=== PATIENT | male | born 1940 | race Caucasian/White ===

== ENCOUNTER 2017-08-11 00:28 | Inpatient (IN) | payer MEDICARE, OTHER ==
[2017-08-10 14:58] LABS: INR 0.94
[2017-08-11] VITALS (15 sets, daily range): BP systolic 110–150; BP diastolic 59–96
[~2017-08-11] VITALS: Ht 166.4 cm; Wt 57.6 kg
[~2017-08-11 00:28] MED LIST: ASPI81TA94 PO; BACI1TAB2 PO; CHOL10005 PO; LACT1CAP9 PO; LISI-362 PO; LOPE-84 PO; METF-410 PO; NAPR220C12 PO; PRAV20TA65 PO; UBID100C48 PO; VIT-7 PO; [UNRECOGNIZED DRUG - CODE] PO
[2017-08-11] MEDS ORDERED: MIDAZOLAM 2 MG/2 ML VIAL IVP PRN (06:15)
[2017-08-11] MEDS ORDERED: cloNIDine EPIDUR INJ 100MCG/ML 40 MCG, ROPIVACAINE 0.5% 20 ML VIAL 25 ML, EPINEPHrine H... INJ ONE (06:15)
[2017-08-11] MEDS ORDERED: LIDOCAINE/SOD BICARB 8.4% SYR ID ONE (06:15)
[2017-08-11] MEDS ORDERED: CLINDAMYCIN(*) 900 MG/NS 50 ML 50 ML IVPB ONE (06:15)
[2017-08-11] MEDS ORDERED: NORMOSOL R SOLN(*) 1000 ML BAG 1,000 ML IV PRN ×2 (06:15→09:45)
[2017-08-11] MEDS ORDERED: TRANEXAMIC AC 1000 MG/10ML SDV 1,000 MG in DEXTROSE 5% 50 ML BAG 50 ML IV ONE (06:15)
[2017-08-11] MEDS ORDERED: FAMOTIDINE 20 MG TAB PO ONE (06:15)
[2017-08-11] MEDS ORDERED: fentaNYL CITR 100 MCG/2 ML AMP ONE (06:35)
[2017-08-11] MEDS ORDERED: PROPOFOL EMUL(*) 10MG/ML 20 ML 20 ML ONE (06:36)
[2017-08-11] MEDS ORDERED: DEXAMETHASONE SOD 4 MG/ML VIAL ONE (06:36)
[2017-08-11] MEDS ORDERED: LIDOCAINE MPF 1% 5 ML VIAL ONE (06:36)
[2017-08-11] MEDS ORDERED: ONDANSETRON 4 MG/2 ML VIAL ONE (06:36)
[2017-08-11] MEDS ORDERED: ACETAMINOPHEN(*)1000 MG/100 ML 100 ML IVPB ONE (06:41)
[2017-08-11] MEDS ORDERED: NS 0.9% 3000 ML IRRIGATION BAG IR ONE (08:08)
[2017-08-11] MEDS ORDERED: PROMETHAZINE 25 MG/ML 1 ML AMP IVP PRN (09:45)
[2017-08-11] MEDS ORDERED: NALOXONE HCL 0.4 MG/ML VIAL IVP PRN (09:45)
[2017-08-11] MEDS ORDERED: MORPHINE 4 MG/ML SYR IVP PRN (09:45)
[2017-08-11] MEDS ORDERED: FLUSH 10 ML SYR IVP PRN (09:45)
[2017-08-11] MEDS ORDERED: MORPHINE SULFATE 30 MG PCA IV PRN (09:45)
[2017-08-11] MEDS ORDERED: MAGNESIUM HYDROXIDE* 30ML UDCP PO PRN (09:45)
[2017-08-11] MEDS ORDERED: ZOLPIDEM TARTRATE 5 MG TAB PO PRN (09:45)
[2017-08-11] MEDS ORDERED: BISACODYL 10 MG SUPP PR PRN (09:45)
[2017-08-11] MEDS ORDERED: ONDANSETRON 4 MG/2 ML VIAL IVP PRN (09:45)
[2017-08-11] MEDS ORDERED: MORPHINE 2 MG/ML SYR IVP PRN (10:00)
--- NOTE | 2017-08-11 10:57 | RADIOLOGY IMAGING REPORT ---
FACILITY: [facility] PATIENT NAME: Vijay Hunt : 1940 MR: [id number] V: [id number] EXAM DATE: ORDERING PHYSICIAN: DARI HENNESSY TECHNOLOGIST: Location: [facility] Patient: Vijay Hunt : 1940 Visit/Account:[id number] Date of Sevice: 08/11/2017 KNEE LIMITED LEFT Indication: Postop Comparison: None available Findings: Three part knee prosthetic is in place. Components appear well seated. Intramedullary lucency is no maria antonia within the tibia and femur, again this is from recent surgery IMPRESSION: 1. Uncomplicated postoperative appearance of left three part TKA Report Dictated By: Jose Hartley at 08/11/2017 10:51 AM Report E-Signed By: Jose Hartley at 08/11/2017 10:53 AM WSN:[id number]
[2017-08-11] MEDS: ASPIRIN 325 MG ENTERIC COATED PO SCH (12:00)
--- NOTE | 2017-08-11 12:31 | History & Physical ---
History of Present Illness Chief Complaint s/p L-TKA and management of medical conditions during this hospitalization History of Present Illness is a77 y.o. male with PMH of HTN on Lisinopril 10mg daily, DM-II on Metformin 500mg bid, Dyslipidemia on Pravastatin 20mg daily, SSS/LBBB s/p PPM, Hemochromatosis s/p multiple phlebotomies and Osteoprosis with OA s/p Knee and Ankle surgeries. He smoked 10PY and he is allergic to PCN. His PCP is Dr. Miguelito Tamayo. He is s/p L-TKA by Dr. Moyer. He tolerated the procedure well. He is AAAx3 and hemodynamically stable. He is still mentally cloudy after the anesthesia. He denies any complaint. History Home Meds Reported Medications Lactobacillus Combo No.10 (PROBIOTIC) 1 Each Capsule, 1 EACH PO DAILY, CAPSULE 08/06/17 Vit A,C & E/Lutein/Minerals (OCUVITE TABLET) 1 Each Tablet, 1 EACH PO DAILY 08/06/17 Cholecalciferol (Vitamin D3) (VITAMIN D3) 1,000 Unit Tablet, 1000 UNIT PO DAILY , TAB 08/06/17 Lisinopril (LISINOPRIL) 10 Mg Tablet, 10 MG PO QDAY, TAB 08/06/17 Pravastatin Sodium (PRAVACHOL) 20 Mg Tablet, 20 MG PO QDAY, TAB 08/06/17 Metformin Hcl (METFORMIN HCL) 500 Mg Tablet, 1 TAB PO BID, TAB 08/06/17 Ubiquinol (ACTIVE-Q) 200 Mg Capsule, 200 MG PO DAILY, CAPSULE 08/06/17 Discontinued Reported Medications Loperamide Hcl (ANTI-DIARRHEAL) 2 Mg Capsule, 2 MG PO DAILY, CAPSULE 08/06/17 Naproxen Sodium (ALEVE) 220 Mg Capsule, 220 MG PO QDAY, CAPSULE 08/06/17 Bacillus Coagulans (Digestive Advantage) 250 Million Cell Tab.chew, 1 TAB PO DAILY 08/06/17 Aspirin (ASPIRIN) 81 Mg Tab.chew, 81 MG PO QDAY, TAB.CHEW 08/06/17 Ubidecarenone (COQ-10) 100 Mg Capsule, 100 MG PO DAILY, CAPSULE 08/06/17 Allergies: Coded Allergies: Penicillins (Verified Allergy, Unknown, 08/06/17) Patient History: FH: CAD (coronary artery disease) FATHER, , Age:95 BROTHER OR SISTER, Age:72 FH: diabetes mellitus FATHER, , Age:95 BROTHER OR SISTER, Age:72 Hx Smoking: Yes (QUIT FOR 30-40 YRS) Smoking Status: Former Smoker Caffeine Intake: Coffee Caffeine/Cups Per Day: 0-2 CUPS DAILY OCC Hx Alcohol Use: No Hx Substance Use Disorder: No Social Drug Use: Never Review of Systems Constitutional: No Fever, No Chills Neurological: Confusion, No Syncope, No Weakness, No Dizziness Eyes: No Vision Change, No Loss of Vision, No Photophobia ENT: No Sinus Congestion, No Tinnitus Cardiovascular: No Chest Pain, No Palpitations Respiratory: No Shortness of Breath, No Cough Gastrointestinal: No Nausea, No Vomiting, No Diarrhea, No Dysphagia, No Constipation, No Early Satiety, No Abdominal Pain, No Other Genitourinary: No Dysuria, No Hematuria Musculoskeletal: Pain, Impaired Mobility, No Sprain, No Strain Psychiatric: No Depression, No Anxiety Exam Vital Signs Vital Signs Date Time Temp Pulse Resp B/P (MAP) Pulse Ox O2 Delivery O2 Flow Rate FiO2 08/11/17 11:00 69 127/61 (83) 97 Nasal Cannula 2.0 08/11/17 10:26 97.6 18 General Appearance: Alert, Awake, No Acute Distress, Afebrile Neuro: No Gross deficits Eyes: PERRLA ENT: Normal Neck: No Masses Cardiovascular: Normal Rhythm & Peripheral Pulses Respiratory: No Respiratory Distress GI: Abd Soft and Non-Tender : Normal Extremities: Soft and Non Tender, Warm, Pulses, Other (LLE with decrease ROM and tender) Integumentary: Skin Intact without Lesion / Mass Psych: Alert & Oriented X3, Appropriate Mood & Affect Assessment and Plan Problems: (1) DM (diabetes mellitus) Status: Chronic Assessment & Plan: I will continue his Metformin 500mg po bid, his last Hb A1C was 7.1 Accuchecks q before B & D Diabetic 1800Cal diet (2) HTN (hypertension) Status: Chronic Assessment & Plan: I will continue his [id number] po qd Low salt diet (3) Dyslipidemia Status: Chronic Assessment & Plan: I will continue his Zocor 20mg po qd and his last Lipid panel was well controlled (4) S/P total knee arthroplasty Status: Acute Assessment & Plan: Management as per surgery DVTP: Aspirin 325mg po qd PT for LLE- ROM Time Spent on Plan of Care: < 30 min Copies to: DARI MOYER MD; MIGUELITO TAMAYO MD Venous Thromboembolism VTE Risk Physician Assess for VTE Risk: Yes Patient's VTE Risk: Low VTE Diagnostic Test 2 Days Prior to Admit: No Antithrombotics Is Pt On Any Antithrombotics?: No Exam Sepsis Risk: No Definite Risk Problem Qualifiers (1) S/P total knee arthroplasty: Laterality: left Qualified Codes: Z96.652 - Presence of left artificial knee joint GARRETT ALVAREZ MD Aug 11, 2017 12:31
[2017-08-11] MEDS: INSULIN HUM LISPRO 100 UN/ML 3 ML VIAL SUBQ PRN ×2 (13:04→22:17)
[2017-08-11] MEDS: APAP/HYDROCODONE 325/7.5 TAB PO PRN ×2 (13:10→19:18)
[2017-08-11] MEDS ORDERED: CLINDAMYCIN 600 MG/4 ML 600 MG in DEXTROSE 5% 50 ML BAG 50 ML IVPB SCH (17:00)
[2017-08-11] MEDS: CLINDAMYCIN(*) 600 MG/NS 50 ML 50 ML IVPB SCH (17:11)
[2017-08-12 01:31] VITALS: BP 118/66
[2017-08-12] MEDS: CLINDAMYCIN(*) 600 MG/NS 50 ML 50 ML IVPB SCH ×2 (01:34→09:06)
[2017-08-12] MEDS: APAP/HYDROCODONE 325/7.5 TAB PO PRN ×4 (01:34→21:43)
--- NOTE | 2017-08-12 04:39 | CARSON TKA ---
EVENT DATE: August 11, 2017 SURGEON: Baljinder Moyer MD ANESTHESIOLOGIST: Yariel Lazar MD ANESTHESIA: Spinal followed by general. KEY ACCOUNT EXECUTIVE: Shahid Delgadillo PA-C PREOPERATIVE DIAGNOSIS Left knee degenerative joint disease. POSTOPERATIVE DIAGNOSIS Left knee degenerative joint disease. PROCEDURE PERFORMED Left total knee arthroplasty. IMPLANTS MicroPort medial pivot shift system with a 5 femur, 6 tibia, 12 mm CS insert, 8 x 35 mm symmetric patella, femur cut 6 degrees valgus, 10 mm. We utilized two packages of [employer] cobalt blue cement and 50 mL of our standard ropivacaine/ Toradol cocktail. Anesthesia utilized 1 gram of IV tranexamic acid prior to the start and after the implantation of the instruments. Tourniquet was placed , but was not utilized. ZipLine wound suture closure system. SPECIMENS None. COMPLICATIONS None. ESTIMATED BLOOD LOSS Less than 200 mL. OPERATION The patient received appropriate preoperative antibiotic, was brought to the OR , where Dr. Lazar performed~spinal followed by general anesthesia. Left thigh tourniquet was placed, left lower extremity prepped and draped in the usual sterile fashion. Midline incision was made, followed by medial parapatellar arthrotomy. We dissected by Bovmike to achieve hemostasis as we went. Medially along the tibial plateau, we dissected subperiosteally to the level of the semimembranosus insertion. We excised the fat pad, released the patella, everted this, brought the knee up into hyper flexion. We noted eburnation in the medial compartment, high-grade change in the patellofemoral compartment, grade 2 changes in the lateral compartment. There were significant osteophytes in the notch. These were removed by rongeur. ACL and PCL were released subperiosteally by Bovie, and we removed the remaining articular cartilage from the distal femoral condyles by sagittal saw. Step cut drill was utilized to broach the femoral canal just above the insertion of the PCL, and we placed our distal femoral cutting guide, setting the cutting block up at 6 degrees valgus, 10 mm. Distal cut was made with care taken to protect the soft tissues. We then placed our 30 degree external rotation guide, referencing out the epicondyles, posterior condyles, sized the femur to a #5, placed our 4-in-1 cutting block and Z retractors to protect the soft tissue, made our four cuts. Tibia was brought anteriorly on the femur with appropriate retractors, and we utilized the step cut drill to broach the tibial canal. We placed our intramedullary guide, which referenced for slope and varus/valgus. We took 10 mm off the least involved lateral tibial plateau, pinned the block into place. With care taken to protect the soft tissues, the cut was made, and this was sized to a #6. The remaining stump of the ACL and PCL, medial and lateral meniscus were removed by Bovie. Curved osteotome was utilized to remove the posterior osteophytes, followed by Burroughs elevator to elevate the capsule. We then placed our trial tibial base place, referencing from the previous rotation , pinned this into place, placed a 12 mm trial insert, then our #5 femur. He achieved full extension, flexion of 140 degrees. At 90 degrees, he had stable anterior drawer. We then everted the patella, drilled the peg holes for the femur, placed these, cut for trochlear chip, placed this, then placed the knee in full extension. Patella was sized to 22.5 mm. This was cut down 8 mm with a guide, and patella accepted 8 x 35 symmetric peg hole guide, which was positioned inferiorly and medially. Peg holes were drilled. Patella was placed. Again we had the aforementioned range of motion and stability. Patella tracked well. Patella, femur and tibial insert were removed, and we placed appropriate retractors and set up our tower for our punch. We cut, reamed and punched. We then removed the tibial base plate trial and tower and placed a bone plug in the distal femur. We copiously irrigated by pulse lavage while we mixed two packages of cobalt blue cement. We injected 10 mL of our cocktail in the posterior capsule with the knee fully extended. We copiously irrigated until we were ready to do our implantation. We dried the bone. In the appropriate position, we cemented the tibia followed by our 12 mm insert, then our femur. Excess cement was removed. Knee brought up to full extension with axial compression while we cemented the patella. After 16 minutes, the cement had hardened. Again we had the aforementioned range of motion and stability. We copiously irrigated by pulse lavage and once again injected remaining 40 mL of our cocktail and closed the arthrotomy with #2 Vicryl in [id number] suture fashion followed by 2-0 Vicryl for subcutaneous tissues, then our ZipLine wound closure system. Compressive dressing was applied. Patient was extubated and taken to recovery in stable condition. Hospitalist team will be consulted for medical management and anticoagulation, PT and OT for rehab. NAYELY
[2017-08-12 06:11] VITALS: BP 149/84
[2017-08-12] MEDS ORDERED: KETAMINE HCL 200 MG/20 ML MDV ONE (07:30)
[2017-08-12] MEDS: INSULIN HUM LISPRO 100 UN/ML 3 ML VIAL SUBQ PRN ×4 (07:43→21:43)
[2017-08-12 09:00] VITALS: Ht 166.4 cm; Wt 57.6 kg
[2017-08-12] MEDS: ASPIRIN 325 MG ENTERIC COATED PO SCH (09:06)
--- NOTE | 2017-08-12 10:03 | Hospitalist Progress Note ---
Subjective Progress Notes Subjective is a77 y.o. male with PMH of HTN on Lisinopril 10mg daily, DM-II on Metformin 500mg bid, Dyslipidemia on Pravastatin 20mg daily, SSS/LBBB s/p PPM, Hemochromatosis s/p multiple phlebotomies and Osteoprosis with OA s/p Knee and Ankle surgeries. He smoked 10PY and he is allergic to PCN. His PCP is Dr. Miguelito Tamayo. He is s/p L-TKA by Dr. Moyer. He tolerated the procedure well. He is AAAx3 and hemodynamically stable. He is still mentally cloudy after the anesthesia. He denies any complaint. 08/12: Patient is mildly confused with STM loss. LTM is preserved. He is afebrile , hemodynamically and medically stable without any complaint. Patient Complains of: Neurological: Confusion Cardiovascular: No: Chest Pain, Palpitations Respiratory: No: Cough, Congestion, Shortness of Breath Gastrointestinal: No Nausea, No Vomiting Genitourinary: No Dysuria, No Hematuria Musculoskeletal: Pain, Impaired Mobility, No: Sprain, Strain Physical Exam Vital Signs Date Time Temp Pulse Resp B/P (MAP) Pulse Ox O2 Delivery O2 Flow Rate FiO2 08/12/17 09:43 86 Nasal Cannula 0.5 08/12/17 06:11 97.8 73 18 149/84 (105) Intake and Output 08/13/17 07:00 Intake Total 50 ml Balance 50 ml Intake Oral 0 ml IV Total 50 ml General Appearance: Alert, Awake, No Acute Distress, Afebrile Neuro: No Gross deficits Eyes: PERRLA ENT: Normal Cardiovascular: Normal Rhythm & Peripheral Pulses Respiratory: No Respiratory Distress GI: Soft and Non-Tender Extremities: Other (tender LLE and decrease ROM) Psych: Alert & Oriented X3, Appropriate Mood & Affect Result Diagram: 08/12/17 4689 Assessment and Plan Problems: (1) DM (diabetes mellitus) Status: Chronic Assessment & Plan: I will continue his Metformin 500mg po bid, his last Hb A1C was 7.1 Accuchecks q before B & D Diabetic 1800Cal diet 08/12: I will continue the current management. His BP and BS are adequately controlled (2) HTN (hypertension) Status: Chronic Assessment & Plan: I will continue his [id number] po qd Low salt diet (3) Dyslipidemia Status: Chronic Assessment & Plan: I will continue his Zocor 20mg po qd and his last Lipid panel was well controlled (4) S/P total knee arthroplasty Status: Acute Assessment & Plan: Management as per surgery DVTP: Aspirin 325mg po qd PT for LLE- ROM 08/12: Management as per surgery and PT Central Venous Access Medical Necessity for Access: IV Access Time Spent on Plan of Care: < 30 min Copies to: DARI MOYER MD Exam Sepsis Risk: No Definite Risk Problem Qualifiers (1) S/P total knee arthroplasty: Laterality: left Qualified Codes: Z96.652 - Presence of left artificial knee joint GARRETT ALVAREZ MD Aug 12, 2017 10:02
[2017-08-12 11:49] VITALS: BP 149/97
[2017-08-12 15:51] VITALS: BP 176/85
[2017-08-12 19:10] VITALS: BP 164/76
[2017-08-12 23:03] VITALS: BP 174/89
[2017-08-13 03:34] VITALS: BP 137/74
[2017-08-13] MEDS: INSULIN HUM LISPRO 100 UN/ML 3 ML VIAL SUBQ PRN ×4 (07:32→20:47)
[2017-08-13 07:35] VITALS: BP 170/95
[2017-08-13] MEDS: ASPIRIN 325 MG ENTERIC COATED PO SCH (09:32)
[2017-08-13] MEDS: metFORMIN HCL 500 MG TAB PO SCH ×2 (09:32→20:43)
[2017-08-13] MEDS: LISINOPRIL 10 MG TAB PO SCH (09:32)
[2017-08-13] MEDS: APAP/HYDROCODONE 325/7.5 TAB PO PRN ×2 (10:05→16:56)
[2017-08-13 11:38] VITALS: BP 153/83
--- NOTE | 2017-08-13 14:16 | Hospitalist Progress Note ---
Subjective Progress Notes Subjective He denies any problems. Physical Exam Vital Signs Date Time Temp Pulse Resp B/P (MAP) Pulse Ox O2 Delivery O2 Flow Rate FiO2 08/13/17 11:38 98.3 91 18 153/83 (106) 89 Room Air 08/12/17 15:51 0.5 Intake and Output 08/14/17 07:01 Intake Total 240 ml Balance 240 ml Intake Oral 240 ml General Appearance: Alert, Awake Cardiovascular: Regular Rate and Rhythm Respiratory: Clear to Auscultation Result Diagram: 08/13/17 0511 Item Value Date Time Whole Blood Glucose 203 mg/DL H 08/13/17 1141 Whole Blood Glucose 161 mg/DL H 08/13/17 0726 Whole Blood Glucose 209 mg/DL H 08/12/17 2142 Whole Blood Glucose 186 mg/DL H 08/12/17 1643 Whole Blood Glucose 180 mg/DL H 08/12/17 1144 Assessment and Plan Problems: (1) DM (diabetes mellitus) Status: Chronic Assessment & Plan: Continue his Metformin 500mg po bid. Diabetic diet. Monitor glucoses and use SSI as needed. (2) HTN (hypertension) Status: Chronic Assessment & Plan: Monitor BPs and resume his [id number] po qday as needed. (3) Dyslipidemia Status: Chronic Assessment & Plan: Continue his Zocor 20mg po qday. (4) S/P total knee arthroplasty Status: Acute Assessment & Plan: Management as per orthopedics. Aspirin 325mg po qday fro DVT prophylaxis. Central Venous Access Medical Necessity for Access: IV Access Exam Sepsis Risk: No Definite Risk Problem Qualifiers (1) S/P total knee arthroplasty: Laterality: left Qualified Codes: Z96.652 - Presence of left artificial knee joint TAWANA BARBOZA MD Aug 13, 2017 14:16
[2017-08-13 15:16] VITALS: BP 147/78
[2017-08-13 19:40] VITALS: BP 154/69
[2017-08-13 23:45] VITALS: BP 154/84
[2017-08-14 03:40] VITALS: BP 157/82
[2017-08-14] MEDS: ACETAMINOPHEN 500 MG TAB PO PRN ×2 (04:06→11:33)
[2017-08-14 08:08] VITALS: BP 128/78
[2017-08-14] MEDS: ASPIRIN 325 MG ENTERIC COATED PO SCH (08:35)
[2017-08-14] MEDS: LISINOPRIL 10 MG TAB PO SCH (08:35)
[2017-08-14] MEDS: metFORMIN HCL 500 MG TAB PO SCH (08:35)
[2017-08-14] MEDS: INSULIN HUM LISPRO 100 UN/ML 3 ML VIAL SUBQ PRN (08:35)
[2017-08-14] MEDS ORDERED: ASPI-757 PO (10:24)
--- NOTE | 2017-08-14 17:00 | Hospitalist Progress Note ---
Subjective Progress Notes Subjective Subjective is a77 y.o. male with PMH of HTN on Lisinopril 10mg daily, DM-II on Metformin 500mg bid, Dyslipidemia on Pravastatin 20mg daily, SSS/LBBB s/p PPM, Hemochromatosis s/p multiple phlebotomies and Osteoprosis with OA s/p Knee and Ankle surgeries. He smoked 10PY and he is allergic to PCN. His PCP is Dr. Miguelito Tamayo. He is s/p L-TKA by Dr. Moyer. He tolerated the procedure well. He is AAAx3 and hemodynamically stable. He is still mentally cloudy after the anesthesia. He denies any complaint. 08/12: Patient is mildly confused with STM loss. LTM is preserved. He is afebrile , hemodynamically and medically stable without any complaint. Patient Complains of: Neurological: Weakness Cardiovascular: No: Chest Pain Respiratory: No: Cough, Shortness of Breath Gastrointestinal: No Nausea, No Vomiting Genitourinary: No Dysuria, No Hematuria Musculoskeletal: Pain Physical Exam Vital Signs Date Time Temp Pulse Resp B/P (MAP) Pulse Ox O2 Delivery O2 Flow Rate FiO2 08/14/17 10:43 Room Air 08/14/17 08:08 98.2 82 16 128/78 (95) 91 Intake and Output 08/15/17 07:00 Intake Total 0 ml Balance 0 ml Intake Oral 0 ml # Voids 1 General Appearance: Alert, Awake, No Acute Distress, Afebrile Neuro: No Gross deficits Eyes: PERRLA ENT: Normal Neck: No Masses Cardiovascular: Regular Rate and Rhythm Respiratory: No Respiratory Distress GI: Soft and Non-Tender Extremities: Soft and Non Tender (mild tenderL-knee) Psych: Alert & Oriented X3, Appropriate Mood & Affect Result Diagram: 08/14/17 0515 Assessment and Plan Problems: (1) DM (diabetes mellitus) Status: Chronic Assessment & Plan: Continue his Metformin 500mg po bid. Diabetic diet. Monitor glucoses and use SSI as needed. 08/14: I reviewed and resumed her home medications on d/c (2) HTN (hypertension) Status: Chronic Assessment & Plan: Monitor BPs and resume his [id number] po q day as needed. 08/14: I reviewed and resumed her home medications on d/c (3) Dyslipidemia Status: Chronic Assessment & Plan: Continue his Zocor 20mg po qday. 08/14: I reviewed and resumed her home medications on d/c (4) S/P total knee arthroplasty Status: Acute Assessment & Plan: Management as per orthopedics. Aspirin 325mg po qday fro DVT prophylaxis. 08/14: Management as per surgery and f/u with Dr. Moyer Central Venous Access Medical Necessity for Access: IV Access Time Spent on Plan of Care: < 30 min Copies to: DARI MOYER MD Exam Sepsis Risk: No Definite Risk Problem Qualifiers (1) S/P total knee arthroplasty: Laterality: left Qualified Codes: Z96.652 - Presence of left artificial knee joint GARRETT ALVAREZ MD Aug 14, 2017 17:00
== END 2017-08-14 11:45 | disposition home health service (06) | DRG 470 ==
LOC: OR 00:28 → MED 10:25
PROVIDERS: ADMIT Orthopaedic Surgery; ATTEND Orthopaedic Surgery
PROC: 0SRD0J9 Replacement of Left Knee Joint with Synthetic Substitute, Cemented, Open Approach (ICD-10-PCS; principal; 2017-08-11 07:07)
DX: M17.12 Unilateral primary osteoarthritis, left knee (principal); I10 Essential (primary) hypertension; E11.9 Type 2 diabetes mellitus without complications; M81.0 Age-related osteoporosis without current pathological fracture; Z88.0 Allergy status to penicillin; E78.5 Hyperlipidemia, unspecified; E83.119 Hemochromatosis, unspecified; I44.7 Left bundle-branch block, unspecified; Z87.891 Personal history of nicotine dependence; Z95.0 Presence of cardiac pacemaker
CPT/HCPCS: 36415; 36416; 82948; 85014; 85018; 85610; 86850; 86900; 86901; 97161; C1713; C1776; J0131; J0171; J0735; J1100; J1885; J2001; J2250; J2270; J2405; J2704; J2795; J3010; J3490; J7050; J7060

== ENCOUNTER 2018-01-11 15:14 | Observation (INO) | payer MEDICARE, OTHER ==
[2017-08-12 09:00] VITALS: Wt 59.9 kg
[~2018-01-11 15:14] MED LIST changes: -UBID50CA24 PO
--- NOTE | 2018-01-11 15:16 | ER Report ---
History and Physical Time Seen By MD: 15:16 (ALEXA BURKS DO) HPI/ROS CHIEF COMPLAINT: syncope HISTORY OF PRESENT ILLNESS: PT here for evaluation of syncope. Pt states that he was playing mini golf and felt light headed, nauseated and felt he was going to collapse. Went to the ground. Not sure if he passed out completely. Pt has long hx of synocpe, 10 times in this past year. Pt was dx with sick sinus syndrome and had a pacemaker placed in [place] this past july. THis is the second time that he has passed out since having the pacemaker. Pt states he feels fine currently accept "a little nauseated". No chest pain or sob. Pt is diabetic but blood sugar 143. Pt states that his pacer is interrogated by a home monitor every night and it has been working well. REVIEW OF SYSTEMS: Constitutional: No fever, no chills. Eyes: No discharge. ENT: No sore throat. Cardiovascular: No chest pain, no palpitations. Respiratory: No cough, no shortness of breath. Gastrointestinal: No abdominal pain, no vomiting, + nausea Genitourinary: No hematuria. Musculoskeletal: No back pain. Skin: No rashes. Neurological: No headache, + syncope (ALEXA BURKS DO) Allergies: Coded Allergies: Penicillins (Verified Allergy, Unknown, 01/11/18) Home Meds Reported Medications Ubidecarenone (CO Q-10) 50 Mg Capsule, 50 MG PO, CAPSULE 01/11/18 Lactobacillus Combo No.10 (PROBIOTIC) 1 Each Capsule, 1 EACH PO DAILY, CAPSULE 08/06/17 Vit A,C & E/Lutein/Minerals (OCUVITE TABLET) 1 Each Tablet, 1 EACH PO DAILY 08/06/17 Cholecalciferol (Vitamin D3) (VITAMIN D3) 1,000 Unit Tablet, 1000 UNIT PO DAILY , TAB 08/06/17 Lisinopril (LISINOPRIL) 10 Mg Tablet, 10 MG PO QDAY, TAB 08/06/17 Pravastatin Sodium (PRAVACHOL) 20 Mg Tablet, 20 MG PO QDAY, TAB 08/06/17 Metformin Hcl (METFORMIN HCL) 500 Mg Tablet, 1 TAB PO BID, TAB 08/06/17 Discontinued Reported Medications Aspirin (ASPIRIN) 325 Mg Tablet, 325 MG PO QDAY for 30 Days, TAB 08/14/17 Ubiquinol (ACTIVE-Q) 200 Mg Capsule, 200 MG PO DAILY, CAPSULE 08/06/17 Past Medical/Surgical History Pmhx: htn, syncope, dm,hyperlipid, sick sinus syndrome, LBBB Pshx: pacer, L tka (VITALIYALEXASA Juan HOLLINS) Reviewed Nurses Notes: Yes Old Medical Records Reviewed: Yes (ALEXA BURKS V DO) Hx Smoking: Yes (QUIT FOR 30-40 YRS) Smoking Status: Former Smoker Hx Alcohol Use: No (TERRAEMMANUELLEALEXA V DO) Constitutional Vital Sign - Last 24 Hours 01/11/18 01/11/18 01/11/18 01/11/18 15:15 15:34 16:24 16:31 Temp 97.2 Pulse 63 66 63 75 74 Resp 20 B/P (MAP) 127/68 133/63 (86) 129/67 (87) 128/66 (86) 144/74 (97) 148/71 (96) Pulse Ox 97 93 O2 Delivery Room Air 01/11/18 01/11/18 01/11/18 01/11/18 17:04 19:23 19:52 20:00 Pulse 70 64 65 70 B/P (MAP) 133/66 (88) 148/73 (98) Pulse Ox 94 96 94 (BRI HUMPHREYS DO) Physical Exam General Appearance: The patient is alert, has no immediate need for airway protection and no signs of toxicity. Eyes: Pupils equal and round no pallor or injection, EOMI ENT: no pharyngeal erythema or exudates, Mucous membranes are moist Respiratory: There are no retractions, lungs are clear to auscultation. Cardiovascular: Regular rate and rhythm. pulses are equal and symmetrical Gastrointestinal: Abdomen is soft and non tender, no masses, bowel sounds normal, no guarding, no rigidity or rebound Neurological: Cranial nerves II-XII grossly intact, no sensory or motor loss, no dysmetria or pronator drift Skin: Warm and dry, no rashes. Musculoskeletal: Neck is supple non tender, no vertebral tenderness Extremities are nontender, non swollen and have full range of motion. DIFFERENTIAL DIAGNOSIS: After history and physical exam differential diagnosis was considered for arrhythmia, orthostatic hypotension, dehydration, hypoglycemic, acs (VITALIY,ALEXA V DO) Medical Decision Making Data Points Result Diagram: 01/11/18 1500 01/11/18 1500 Laboratory Hematology Test 01/11/18 15:00 01/11/18 18:29 Red Blood Count 4.39 M/uL (4.00-5.60) Mean Corpuscular Volume 74.2 fL (80.0-96.0) Mean Corpuscular Hemoglobin 25.0 pg (26.0-33.0) Mean Corpuscular Hemoglobin Concent 33.8 g/dL (32.0-36.0) Red Cell Distribution Width 16.6 % (11.5-14.5) Mean Platelet Volume 6.9 fL (7.2-11.1) Neutrophils (%) (Auto) 47.8 % (39.4-72.5) Lymphocytes (%) (Auto) 40.1 % (17.6-49.6) Monocytes (%) (Auto) 8.2 % (4.1-12.4) Eosinophils (%) (Auto) 2.9 % (0.4-6.7) Basophils (%) (Auto) 1.0 % (0.3-1.4) Nucleated RBC Relative Count (auto) 0.0 /100WBC Neutrophils # (Auto) 3.2 K/uL (2.0-7.4) Lymphocytes # (Auto) 2.6 K/uL (1.3-3.6) Monocytes # (Auto) 0.5 K/uL (0.3-1.0) Eosinophils # (Auto) 0.2 K/uL (0.0-0.5) Basophils # (Auto) 0.1 K/uL (0.0-0.1) Nucleated RBC Absolute Count (auto) 0.00 K/uL Peripheral Blood Smear No Y/N Sodium Level 133 mmol/L (137-145) Potassium Level 4.5 mmol/L (3.5-5.0) Chloride Level 98 mmol/L (98-107) Carbon Dioxide Level 23 mmol/L (22-30) Blood Urea Nitrogen 17 mg/dl (9-21) Creatinine 1.10 mg/dl (0.66-1.25) Glomerular Filtration Rate Calc > 60.0 Random Glucose 163 mg/dl (75-110) Calcium Level 10.1 mg/dl (8.4-10.2) Total Bilirubin 0.4 mg/dl (0.2-1.3) Aspartate Amino Transf (AST/SGOT) 24 U/L (0-35) Alanine Aminotransferase (ALT/SGPT) 24 U/L (0-56) Alkaline Phosphatase 81 U/L (0-126) Total Protein 7.4 g/dl (6.3-8.2) Albumin 4.1 g/dl (3.5-5.0) Troponin I 0.028 ng/ml Chemistry Test 01/11/18 15:00 01/11/18 18:29 White Blood Count 6.6 k/uL (4.5-11.0) Red Blood Count 4.39 M/uL (4.00-5.60) Hemoglobin 11.0 g/dL (14.0-18.0) Hematocrit 32.6 % (42.0-52.0) Mean Corpuscular Volume 74.2 fL (80.0-96.0) Mean Corpuscular Hemoglobin 25.0 pg (26.0-33.0) Mean Corpuscular Hemoglobin Concent 33.8 g/dL (32.0-36.0) Red Cell Distribution Width 16.6 % (11.5-14.5) Platelet Count 388 K/uL (150-450) Mean Platelet Volume 6.9 fL (7.2-11.1) Neutrophils (%) (Auto) 47.8 % (39.4-72.5) Lymphocytes (%) (Auto) 40.1 % (17.6-49.6) Monocytes (%) (Auto) 8.2 % (4.1-12.4) Eosinophils (%) (Auto) 2.9 % (0.4-6.7) Basophils (%) (Auto) 1.0 % (0.3-1.4) Nucleated RBC Relative Count (auto) 0.0 /100WBC Neutrophils # (Auto) 3.2 K/uL (2.0-7.4) Lymphocytes # (Auto) 2.6 K/uL (1.3-3.6) Monocytes # (Auto) 0.5 K/uL (0.3-1.0) Eosinophils # (Auto) 0.2 K/uL (0.0-0.5) Basophils # (Auto) 0.1 K/uL (0.0-0.1) Nucleated RBC Absolute Count (auto) 0.00 K/uL Peripheral Blood Smear No Y/N Glomerular Filtration Rate Calc > 60.0 Calcium Level 10.1 mg/dl (8.4-10.2) Total Bilirubin 0.4 mg/dl (0.2-1.3) Aspartate Amino Transf (AST/SGOT) 24 U/L (0-35) Alanine Aminotransferase (ALT/SGPT) 24 U/L (0-56) Alkaline Phosphatase 81 U/L (0-126) Total Protein 7.4 g/dl (6.3-8.2) Albumin 4.1 g/dl (3.5-5.0) Troponin I 0.028 ng/ml (BRI HUMPHREYS DO) EKG/Imaging EKG Interpretation NSR @ 60 with LBBB seen on prior Imaging napd (ALEXA BURKS DO) ED Course/Re-evaluation Clinical Indication for ER IV: IV Access ED Course 01/11/2018 5:11:48 pm Pts labs are stable. Pt is without any symptoms. Monitor has been stable. Pt initial troponin is neg. PT has hx of syncope. I suspect this is his usual however with the nausea earlier and his risk factors of dm, htn, hyperlipid. will order second tropinin. If negative he can go home to have his pacer monitored. 01/11/2018 6:02:58 pm Signed out to Dr. Humphreys pending second troponin Decision to Disposition Date: Jan 11, 2018 (ALEXA BURKS DO) ED Course Care was assumed at shift change awaiting 2nd diagnostic troponin from Dr. Burks The differential diagnoses was considered. Patient's EKG shows left bundle branch block. There are no previous EKGs for comparison. Patient's history is significant for numerous syncopal episodes. He was diagnosed with sick sinus syndrome. He's had 10 single episodes in the last year. 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 Patient's last episode was 3-4 weeks ago. He was trimming a hedge outside his home when he collapsed. His pacemaker was interrogated at that time. Today patient had a single episode while playing [employer] golf. His 1st troponin was unremarkable. A 2nd troponin was mildly elevated 0.028 still unremarkable, but increasing from previous. Case was discussed with Dr. Cooper, cardiology on-call, who advised telemetry monitoring overnight for dysrhythmia. 01/11/2018 7:49:55 pm case discussed with Dr. Lawrence Cooper, rolled ham lacer on- call, who advises monitoring on telemetry overnight. He's not concerned about the elevated troponin level. 01/11/2018 8:01:24 pm case discussed with Dr. Socorro Seymour hospitalist on-call , who accepts the patient for admission to telemetry for monitoring for dysrhythmia Decision to Disposition Date: Jan 11, 2018 Decision to Disposition Time: 20:00 (BRI HUMPHREYS DO) Depart Departure Latest Vital Signs Vital Signs Date Time Temp Pulse Resp B/P (MAP) Pulse Ox O2 Delivery O2 Flow Rate FiO2 01/11/18 20:00 70 148/73 (98) 01/11/18 19:52 94 01/11/18 15:15 97.2 20 Room Air (BRI HUMPHREYS DO) Impression: Primary Impression: Syncope Condition: Improved Disposition: Admitted from ER Referrals: DARI HENNESSY MD (PCP) 2 Days Patient Instructions: Syncope (GEN) Additional Instructions: Follow up with your doctors Return as needed. Problem Qualifiers Primary Impression: Syncope Syncope type: unspecified Qualified Codes: R55 - Syncope and collapse ALEXA BURKS DO Jan 11, 2018 15:16 BRI HUMPHREYS DO Jan 11, 2018 20:03
[2018-01-11 15:30] LABS: PLATELET COUNT, AUTOMATED 388 K/uL (150-450)
[2018-01-11] MEDS ORDERED: UBID50CA24 PO (15:33)
--- NOTE | 2018-01-11 16:20 | RADIOLOGY IMAGING REPORT ---
FACILITY: [facility] [place] PATIENT NAME: Vijay Hunt : 1940 MR: [id number] V: [id number] EXAM DATE: ORDERING PHYSICIAN: ALEXA BURKS TECHNOLOGIST: Location[place] [facility] [place] Patient: Vijay Hunt : 1940 Visit/Account:[id number] Date of Sevice: 01/11/2018 CHEST SINGLE AP Indication: Chest pain.. Comparison: None available Findings: Cardiomediastinal silhouette and pulmonary vessels within normal limits. Left subclavian 2-lead pacem danny is in place. There is no focal infiltrate or lobar consolidation. No pneumothorax or pleural effusion. No nodule. Upper abdomen is unremarkable. No acute bony abnormality. Bone island in the right humeral head. IMPRESSION: 1. No acute cardiopulmonary process. Report Dictated By: Jason Mcgovern at 01/11/2018 4:14 PM Report E-Signed By: Jason Mcgovern at 01/11/2018 4:16 PM WSN:[id number]
--- NOTE | 2018-01-11 16:37 | EKG ---
FACILITY: [facility] PATIENT NAME: ROBIN GASTON : [id number] MR: [id number] V: [id number] EXAM DATE: ORDERING PHYSICIAN: ALEXA BURKS TECHNOLOGIST: SARITA Norton Reason : Blood Pressure : / mmHG Vent. Rate : 061 BPM Atrial Rate : 061 BPM P-R Int : 172 ms QRS Dur : 142 ms QT Int : 488 ms P-R-T Axes : 056 -37 101 degrees QTc Int : 491 ms Normal sinus rhythm Left axis deviation Left bundle branch block Abnormal ECG No previous ECGs available Confirmed by HAYDEE JUDD ([id number]) on 01/11/2018 10:18:38 PM Referred By: Confirmed By:HAYDEE JUDD
[2018-01-11] MEDS ORDERED: EMS NS 0.9%(*) 1000 ML BAG 1,000 ML IV ONE (20:30)
[2018-01-11 20:52] VITALS: BP 155/76
[2018-01-11] MEDS ORDERED: INFLUENZA VIRUS VAC 0.5 ML SYR IM ONLY ONE (20:55)
[2018-01-11] MEDS ORDERED: FLUSH 10 ML SYR IVP PRN (20:55)
[2018-01-11] MEDS: metFORMIN HCL 500 MG TAB PO SCH (21:00)
--- NOTE | 2018-01-11 21:31 | History & Physical ---
History of Present Illness Chief Complaint Syncope History of Present Illness The patient is a 77 year old male from [place] with PMH significant for pacemaker placement due to dysrhythmia and sinus pauses resulting in syncope who presents with syncope today while playing miniature golf in [place] with his grandson. The patient states he had 8 syncopal episodes in 2 months at the end of 2016. A pacemaker was placed in July of this year. He was doing well until 2 weeks ago when he passed out. His pacemaker was interrogated and he was instructed to drive to [facility] to have his pacemaker adjusted. He sees the [facility]ology group. Today while playing miniature golf he became lightheaded and started to sit down. Per his family, he passed out completely and was out for a short time. The patient states he does have a warning sensation of lightheadedness prior to his syncopal events. He denies chest pain , palpitations or shortness of breath. He did feel a bit nauseated after his episode earlier today. EMS was called an the patient was transferred to [facility] ER for evaluation. In the ER, the patient's evaluation was unremarkable. CXR was negative. His initial troponin was <0.012. A repeat troponin 3.5 hours later was 0.02. Dr. Cooper was contacted and recommended the patient be observed overnight on telemetry. He was accepted for admission to the medical floor. History Problems: (1) Dysrhythmia, cardiac Status: Chronic (2) Hx of cataract extraction Status: Resolved (3) Hx of tonsillectomy Status: Resolved (4) Hx of cystoscopy Status: Resolved (5) History of prostate surgery Status: Resolved (6) History of permanent cardiac pacemaker placement Status: Chronic (7) Hearing loss Status: Chronic (8) Hemochromatosis Status: Chronic (9) Dyslipidemia Status: Chronic (10) DM (diabetes mellitus) Status: Chronic (11) HTN (hypertension) Status: Chronic (12) Syncope Status: Acute Comment: Recurrent. Home Meds Reported Medications Ubidecarenone (CO Q-10) 50 Mg Capsule, 50 MG PO, CAPSULE 01/11/18 Lactobacillus Combo No.10 (PROBIOTIC) 1 Each Capsule, 1 EACH PO DAILY, CAPSULE 08/06/17 Vit A,C & E/Lutein/Minerals (OCUVITE TABLET) 1 Each Tablet, 1 EACH PO DAILY 08/06/17 Cholecalciferol (Vitamin D3) (VITAMIN D3) 1,000 Unit Tablet, 1000 UNIT PO DAILY , TAB 08/06/17 Lisinopril (LISINOPRIL) 10 Mg Tablet, 10 MG PO QDAY, TAB 08/06/17 Pravastatin Sodium (PRAVACHOL) 20 Mg Tablet, 20 MG PO QDAY, TAB 08/06/17 Metformin Hcl (METFORMIN HCL) 500 Mg Tablet, 1 TAB PO BID, TAB 08/06/17 Discontinued Reported Medications Aspirin (ASPIRIN) 325 Mg Tablet, 325 MG PO QDAY for 30 Days, TAB 08/14/17 Ubiquinol (ACTIVE-Q) 200 Mg Capsule, 200 MG PO DAILY, CAPSULE 08/06/17 Allergies: Coded Allergies: Penicillins (Verified Allergy, Unknown, 01/11/18) Patient History: FH: CAD (coronary artery disease) FATHER, , Age:95 BROTHER OR SISTER, Age:72 FH: diabetes mellitus FATHER, , Age:95 BROTHER OR SISTER, Age:72 Hx Smoking: Yes (QUIT FOR 30-40 YRS) Smoking Status: Former Smoker Caffeine Intake: Coffee Caffeine/Cups Per Day: 0-2 CUPS DAILY OCC Hx Alcohol Use: No Hx Substance Use Disorder: No Social Drug Use: Never Review of Systems All Systems Reviewed/Normal: Yes, Except as Noted Constitutional: No Fever Neurological: Syncope, Other (Llightheaded prior to syncope.) Eyes: No Vision Change ENT: Hearing Loss (Bilateral hearing aids.) Cardiovascular: No Chest Pain, No Palpitations Respiratory: No Shortness of Breath Gastrointestinal: Nausea (After syncopal episode) Genitourinary: No Other (History of "prostate problems" but no difficulty now.) Exam Vital Signs Vital Signs Date Time Temp Pulse Resp B/P (MAP) Pulse Ox O2 Delivery O2 Flow Rate FiO2 01/11/18 20:52 98.2 64 16 155/76 (102) 94 Room Air General Appearance: Alert, Awake, No Acute Distress, Afebrile Neuro: No Gross deficits Eyes: PERRLA Cardiovascular: Regular Rate and Rhythm Respiratory: Clear to Auscultation GI: Abd Soft and Non-Tender Extremities: Warm, Perfused, Other (No edema.) Integumentary: Skin Intact without Lesion / Mass Psych: Alert & Oriented X3, Appropriate Mood & Affect Medical Decision Making Data Points Result Diagram: 01/11/18 1500 01/11/18 1500 Item Value Date Time Calcium Level 10.1 mg/dl 01/11/18 1500 Total Bilirubin 0.4 mg/dl 01/11/18 1500 Aspartate Amino Transf (AST/SGOT) 24 U/L 01/11/18 1500 Alanine Aminotransferase (ALT/SGPT) 24 U/L 01/11/18 1500 Alkaline Phosphatase 81 U/L 01/11/18 1500 Total Protein 7.4 g/dl 01/11/18 1500 Albumin 4.1 g/dl 01/11/18 1500 Troponin I < 0.012 ng/ml 01/11/18 1500 Troponin I 0.028 ng/ml 01/11/18 1829 EKG / Imaging EKG Interpretation FACILITY: [facility] [place] PATIENT NAME: VIJAY HUNT : [id number] MR: [id number] V: [id number] EXAM DATE: ORDERING PHYSICIAN: ALEXA BURKS TECHNOLOGIST: SARITA Norton Reason : Blood Pressure : / mmHG Vent. Rate : 061 BPM Atrial Rate : 061 BPM P-R Int : 172 ms QRS Dur : 142 ms QT Int : 488 ms P-R-T Axes : 056 -37 101 degrees QTc Int : 491 ms Normal sinus rhythm Left axis deviation Left bundle branch block Abnormal ECG No previous ECGs available Referred By: Confirmed By: [id number] T: / Imaging FACILITY: [facility] [place] PATIENT NAME: Vijay Hunt : 1940 MR: [id number] V: [id number] EXAM DATE: [id number] ORDERING PHYSICIAN: ALEXA BURKS TECHNOLOGIST: Location: [facility] [place] Patient: Vijay Hunt : 1940 Visit/Account:[id number] Date of Sevice: 01/11/2018 CHEST SINGLE AP Indication: Chest pain.. Comparison: None available Findings: Cardiomediastinal silhouette and pulmonary vessels within normal limits. Left subclavian 2-lead pacemaker is in place. There is no focal infiltrate or lobar consolidation. No pneumothorax or pleural effusion. No nodule. Upper abdomen is unremarkable. No acute bony abnormality. Bone island in the right humeral head. IMPRESSION: 1. No acute cardiopulmonary process. Report Dictated By: Jason Mcgovern at 01/11/2018 4:14 PM Report E-Signed By: Jason Mcgovern at 01/11/2018 4:16 PM WSN:[id number] Pre-Admit Course ED Medications NS Medical Record Review: Yes Assessment and Plan Problems: (1) Syncope Status: Acute Assessment & Plan: Will admit and monitor on telemetry. Repeat labs and troponin in am. Will saline lock as he is drinking well and had a liter of fluid in ER. (2) Dyslipidemia Status: Chronic Assessment & Plan: Continue pravastatin. (3) DM (diabetes mellitus) Status: Chronic Assessment & Plan: Continue metformin. (4) HTN (hypertension) Status: Chronic Assessment & Plan: Continue lisinopril. (5) History of permanent cardiac pacemaker placement Status: Chronic Assessment & Plan: Placed in July 2017. Central Venous Access Medical Necessity for Access: IV Access Time Spent on Plan of Care: < 30 min Copies to: EDIE COOPER MD; FRANK SEVILLA MD Venous Thromboembolism Antithrombotics Is Pt On Any Antithrombotics?: Yes Exam Sepsis Risk: No Definite Risk Problem Qualifiers (1) Syncope: Syncope type: unspecified Qualified Codes: R55 - Syncope and collapse HAYDEE BARBOZA MD Jan 11, 2018 21:31
[2018-01-11 23:03] VITALS: BP 157/78
[2018-01-12 03:22] VITALS: BP 139/73
[2018-01-12 06:08] LABS: PLATELET COUNT, AUTOMATED 315 K/uL (150-450)
[2018-01-12 06:47] VITALS: BP 159/79
--- NOTE | 2018-01-12 08:30 | Hospitalist Depart ---
Discharge Summary Reason for Hosp/Final Diag: (1) Syncope Status: Acute Hospital Course & Plan: The patient was admitted and monitored on telemetry. Repeat labs and troponin were without significant abnormality. Review of the patient's telemetry showed no arrhythmias. The patient was discharged and instructed to follow up with his PCP, Dr. Tamayo, as well as cardiology. (2) Dyslipidemia Status: Chronic Hospital Course & Plan: He was continued on pravastatin. (3) DM (diabetes mellitus) Status: Chronic Hospital Course & Plan: He was continued on metformin. (4) HTN (hypertension) Status: Chronic Hospital Course & Plan: He was continued on lisinopril. (5) History of permanent cardiac pacemaker placement Status: Chronic Hospital Course & Plan: Placed in July 2017. Departure Weight (Pounds): 132 Result Diagram: 01/12/1852801/12/18528 Item Value Date Time Troponin I < 0.012 ng/ml 01/11/18 1500 Troponin I 0.028 ng/ml 01/11/18 1829 Troponin I < 0.012 ng/ml 01/12/18528 Calcium Level 10.1 mg/dl 01/11/18 1500 Total Bilirubin 0.4 mg/dl 01/11/18 1500 Aspartate Amino Transf (AST/SGOT) 24 U/L 01/11/18 1500 Alanine Aminotransferase (ALT/SGPT) 24 U/L 01/11/18 1500 Alkaline Phosphatase 81 U/L 01/11/18 1500 Total Protein 7.4 g/dl 01/11/18 1500 Albumin 4.1 g/dl 01/11/18 1500 Imaging FACILITY: [facility] PATIENT NAME: Vijay Hunt : 1940 MR: [id number] V: [id number] EXAM DATE: ORDERING PHYSICIAN: ALEXA BURKS TECHNOLOGIST: Location: [facility] [place] Patient: Vijay Hunt : 1940 Visit/Account:[id number] Date of Sevice: 01/11/2018 CHEST SINGLE AP Indication: Chest pain.. Comparison: None available Findings: Cardiomediastinal silhouette and pulmonary vessels within normal limits. Left subclavian 2-lead pacemaker is in place. There is no focal infiltrate or lobar consolidation. No pneumothorax or pleural effusion. No nodule. Upper abdomen is unremarkable. No acute bony abnormality. Bone island in the right humeral head. IMPRESSION: 1. No acute cardiopulmonary process. Report Dictated By: Jason Mcgovern at 01/11/2018 4:14 PM Report E-Signed By: Jason Mcgovern at 01/11/2018 4:16 PM WSN:[id number] EKG FACILITY: [facility] PATIENT NAME: VIJAY HUNT : [id number] MR: [id number] V: [id number] EXAM DATE: ORDERING PHYSICIAN: ALEXA BURKS TECHNOLOGIST: SARITA Norton Reason : Blood Pressure : / mmHG Vent. Rate : 061 BPM Atrial Rate : 061 BPM P-R Int : 172 ms QRS Dur : 142 ms QT Int : 488 ms P-R-T Axes : 056 -37 101 degrees QTc Int : 491 ms Normal sinus rhythm Left axis deviation Left bundle branch block Abnormal ECG No previous ECGs available Confirmed by HAYDEE JUDD ([id number]) on 01/11/2018 10:18:38 PM Referred By: Confirmed By:HAYDEE JUDD [id number] T: FRANCESCA/ Condition: Improved Discharge: Home, Self Care Time Spent: < 30 min Discharge Instructions Home Meds Reported Medications Ubidecarenone (CO Q-10) 50 Mg Capsule, 50 MG PO, CAPSULE 01/11/18 Lactobacillus Combo No.10 (PROBIOTIC) 1 Each Capsule, 1 EACH PO DAILY, CAPSULE 08/06/17 Vit A,C & E/Lutein/Minerals (OCUVITE TABLET) 1 Each Tablet, 1 EACH PO DAILY 08/06/17 Cholecalciferol (Vitamin D3) (VITAMIN D3) 1,000 Unit Tablet, 1000 UNIT PO DAILY , TAB 08/06/17 Lisinopril (LISINOPRIL) 10 Mg Tablet, 10 MG PO QDAY, TAB 08/06/17 Pravastatin Sodium (PRAVACHOL) 20 Mg Tablet, 20 MG PO QDAY, TAB 08/06/17 Metformin Hcl (METFORMIN HCL) 500 Mg Tablet, 1 TAB PO BID, TAB 08/06/17 Discontinued Reported Medications Aspirin (ASPIRIN) 325 Mg Tablet, 325 MG PO QDAY for 30 Days, TAB 08/14/17 Ubiquinol (ACTIVE-Q) 200 Mg Capsule, 200 MG PO DAILY, CAPSULE 08/06/17 Follow up Referrals: Cardiology - In One Day @ [facility] Internal Medicine @ Dr. Reuben Tamayo Diet: Diabetic Activity: As Tolerated Copies to: EDIE BORGES MD; FRANK TAMAYO MD Venous Thromboembolism Antithrombotics Is Pt On Any Antithrombotics?: Yes Problem Qualifiers (1) Syncope: Syncope type: unspecified Qualified Codes: R55 - Syncope and collapse (2) DM (diabetes mellitus): Diabetes mellitus type: type 2 (3) HTN (hypertension): Hypertension type: essential hypertension Qualified Codes: I10 - Essential ( primary) hypertension HAYDEE BARBOZA MD Jan 12, 2018 08:30
[2018-01-12] MEDS: metFORMIN HCL 500 MG TAB PO SCH (08:56)
[2018-01-12] MEDS ORDERED: PRAVASTATIN SOD 20 MG TAB PO SCH (09:00)
[2018-01-12] MEDS ORDERED: LISINOPRIL 10 MG TAB PO SCH (09:00)
[2018-01-12] MEDS ORDERED: ENOXAPARIN 40 MG/0.4ML SYR SC SCH (09:00)
== END 2018-01-12 08:17 | disposition home or self-care (01) ==
LOC: ER 15:18 → MED 20:06 → INTOOBSV 20:06
PROVIDERS: ADMIT Internal Medicine; ATTEND Internal Medicine
DX: R55 Syncope and collapse (principal); I44.7 Left bundle-branch block, unspecified; Z95.0 Presence of cardiac pacemaker; E78.5 Hyperlipidemia, unspecified; I10 Essential (primary) hypertension; E11.9 Type 2 diabetes mellitus without complications
CPT/HCPCS: 36415; 71045; 84484; 85025; 93005; 96360; 99284; A9270; G0378; 82040; 82247; 82310; 82374; 82435; 82565; 82947; 84075; 84132; 84155; 84295; 84450; 84460; 84520

== ENCOUNTER → 2018-01-11 | Outpatient (CLI) | payer MEDICARE, OTHER ==
[2017-08-12 09:00] VITALS: BMI 20.8
[~2018-01-11] MED LIST changes: +ASPI-757 PO; -METF-410 PO; +METF-411 PO; +UBID50CA24 PO
== END ==
LOC: AMB 14:45
PROVIDERS: ATTEND Nurse Practitioner
DX: R42 Dizziness and giddiness (principal); I44.7 Left bundle-branch block, unspecified
CPT/HCPCS: A0425; A0427